=== PATIENT | male | born 1970 | race Caucasian/White ===

== ENCOUNTER 2017-09-14 13:07 | Emergency (ER) | payer MEDICAID, OTHER ==
[2017-09-14 13:16] VITALS: TEMP 98.3; O2SAT 98
--- NOTE | 2017-09-14 14:56 | ED PDOC ---
HPI: Chest Pain Chief Complaint (Provider): Palpitations Additional History Per: Patient <Theodore Montanez - Last Filed: 09/14/17 16:53> <Bernarda Cagle - Last Filed: 09/16/17 13:04> Time Seen by Provider: 09/14/17 13:41 Chief Complaint (Nursing): Chest Pain Additional Complaint(s): This is 47 y/o male with PMH of Hypothyroidism comes to the clinic for evaluation and c/o palpitations since last 3 months. Patient denies any acute event, but states this palpitations are getting worse and he doesn't have any place to go after he lost his insurance. Patient admits loss of appetite, body aches, low energy and emotional mood. Patient denies any suicidal and homicidal ideation but admits loss of interest. Patient denies any diarrhea/constipation, hot/cold intolerance, abdominal pain, dizziness, blurred vision, acute chest pain, acute SOB or any urinary symptoms. - Patient would like to get synthroid medication (Theodore Montanez) Supervising Attending Note - Supervising Attending Note The Documented history was done by the: Physician Interventional Radiologist, Attending Physician The documented physical exam was done by the: Physician Interventional Radiologist, Attending Physician The documented procedures were done by the: Physician Interventional Radiologist, Attending Physician - Attestation: I have personally seen and examined this patient.: Yes I have fully participated in the care of the patient.: Yes I have reviewed all pertinent clinical information: Yes <Bernarda Cagle - Last Filed: 09/16/17 13:04> Past Medical History - Medical History PMH: Hypothyroidism Denies: Atrial Fibrillation, CAD, Cardia Arrhythmia, COPD, CVA - Surgical History Surgical History: No Surg Hx - Family History Family History: States: No Known Family Hx - Living Arrangements Living Arrangements: With Family - Social History Current smoker - smoking cessation education provided: Yes Alcohol: None Drugs: Denies <Theodore Montanez - Last Filed: 09/14/17 16:53> <Bernarda Cagle - Last Filed: 09/16/17 13:04> Vital Signs: Last Vital Signs Temp 98.3 F 09/14/17 13:11 Pulse 68 09/14/17 17:25 Resp 14 09/14/17 17:25 BP 105/74 09/14/17 17:25 Pulse Ox 98 09/14/17 17:25 - Home Medications Home Medications: Ambulatory Orders Medication Instructions Recorded Levothyroxine Sodium [Synthroid] 175 mcg PO DAILY #30 tablet 09/14/17 - Allergies Allergies/Adverse Reactions: Allergies Allergy/AdvReac Type Severity Reaction Status Date / Time No Known Allergies Allergy Verified 09/14/17 13:11 TOMASZ Risk Score for UA/NSTEMI - TOMASZ Risk Score Age > 64: NO 3 or more CAD Risk Factors: NO Known CAD (Stenosis greater than 50%): NO Aspirin use in past 7 days: NO Severe Angina: NO EKG ST changes greater than 0.5mm: NO Positive Cardiac Marker: NO TOMASZ Score: 0 Risk %: 5% <Theodore Montanez - Last Filed: 09/14/17 16:53> Curb-65 Severity Score - CURB-65 Severity Score Confusion: No Bun >19mg/dl (>7mmol/L): No Respiratory Rate greater than/equal to 30: No Systolic BP <90 or Diastolic BP less than/equal 60mmHg: No Age >64: No Curb-65 Score: 0 Percentage 30-day mortality: 0.6% <Theodore Montanez - Last Filed: 09/14/17 16:53> Wells Criteria for PE - Wells Criteria for Pulmonary Embolism Clinical Signs and Symptoms of DVT: No P.E is #1 Diagnosis, or Equally Likely: No Heart Rate >100: No Immobilization at least 3 days;Surgery previous 4 weeks: No Previous, objectively diagnosed PE or DVT: Yes Hemoptysis: No Malignancy w/treatment within 6 months, or palliative: No Total Score: 1.5 <Theodore Montanez - Last Filed: 09/14/17 16:53> Review of Systems Constitutional: Negative for: Fever, Chills Eyes: Negative for: Pain, Vision Change ENT: Negative for: Ear Pain, Nose Pain Cardiovascular: Positive for: Palpitations. Negative for: Chest Pain, Orthopnea , Paroxysmal Noc. Dyspnea Respiratory: Negative for: Cough, Shortness of Breath, Hemoptysis Gastrointestinal: Negative for: Nausea, Abdominal Pain Genitourinary Male: Negative for: Dysuria Musculoskeletal: Negative for: Neck Pain Skin: Negative for: Rash Neurological: Negative for: Weakness, Numbness Psych: Positive for: Depression <Theodore Montanez - Last Filed: 09/14/17 16:53> ROS Statement: Except As Marked, All Systems Reviewed And Found Negative <Bernarda Cagle - Last Filed: 09/16/17 13:04> Physical Exam - Reviewed Nursing Documentation Reviewed: Yes Vital Signs Reviewed: Yes - Physical Exam Appears: Positive for: No Acute Distress Head Exam: Positive for: ATRAUMATIC, NORMAL INSPECTION, NORMOCEPHALIC Skin: Positive for: Normal Color Eye Exam: Positive for: Normal appearance ENT: Positive for: Normal ENT Inspection Neck: Positive for: Normal, Painless ROM, Supple, Trachea Midline Cardiovascular/Chest: Positive for: Regular Rate, Rhythm, Chest Non Tender. Negative for: Edema, JVD Respiratory: Positive for: Normal Breath Sounds. Negative for: Accessory Muscle Use Gastrointestinal/Abdominal: Positive for: Normal Exam, Bowel Sounds, Soft. Negative for: Tenderness Back: Positive for: Normal Inspection Extremity: Positive for: Normal ROM. Negative for: Pedal Edema, Calf Tenderness Neurologic/Psych: Positive for: Alert, issuer II-XII, Oriented <Theodore Montanez - Last Filed: 09/14/17 16:53> - Laboratory Results Result Diagrams: 09/14/17 15:05 09/14/17 15:05 - ECG O2 Sat by Pulse Oximetry: 98 <Theodore Montanez - Last Filed: 09/14/17 16:53> - Laboratory Results Result Diagrams: 09/14/17 15:05 09/14/17 15:05 <Bernarda Cagle - Last Filed: 09/16/17 13:04> - ECG Interpretation Of ECG: Normal EKG Sinus rhythm No ST or AL changes (Theodore Montanez) - Progress ED Course And Treament: 47 y/o male with PMH of hypothyroidism comes to ED for evaluation of palpitations - EKG - BMP, Troponin - CXR - 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 Cagle EKG reviewed: Sinus Rhythm , Normal EKG, No ST elevations, normal AL CBC and CMP reviewed and unremarkable D-dim normal Troponin unremarkable Patient was examined and reevaluated , patient denies any palpitations at this time and requesting to go home with Synthroid medication. (Theodore Montanez) Medical Decision Making <Theodore Montanez - Last Filed: 09/14/17 16:53> <Bernarda Cagle - Last Filed: 09/16/17 13:04> Medical Decision Making: Palpitations, Symptoms of Hypothyroidism (Theodore Montanez) Disposition - Disposition Disposition: Routine/Home Disposition Time: 16:51 <Theodore Montanez - Last Filed: 09/14/17 16:53> - Patient ED Disposition Is Patient to be Admitted: No Doctor Will See Patient In The: Office Counseled Patient/Family Regarding: Studies Performed, Diagnosis, Need For Followup <Bernarda Cagle - Last Filed: 09/16/17 13:04> - Clinical Impression Clinical Impression: Palpitation, Hypothyroidism - Disposition Referrals: [facility] [Outside] Condition: GOOD Additional Instructions: Take your medications as instructed. Follow up with your PCP in 3 days. Prescriptions: Levothyroxine Sodium [Synthroid] 175 mcg PO DAILY #30 tablet Instructions: Palpitations (ED), Hypothyroidism (ED)
[2017-09-14 15:15] LABS: BASO # 0.1 K/uL (0.0-0.2); BASO % 1.2 % (0.0-2.0); EOS # 0.2 K/uL (0.0-0.7); EOS % 2.2 % (0.0-4.0); HEMOGLOBIN 12.9 g/dL (12.0-18.0); LYMPH # 1.7 K/uL (1.0-4.3); LYMPH % 22.4 % (20.0-40.0); MEAN CELL VOLUME 92.3 fl (80.0-94.0); MEAN CORPUSCULAR HEMOGLOBIN 30.1 pg (27.0-31.0); MEAN CORPUSCULAR HGB CONC 32.6 g/dL (33.0-37.0); MEAN PLATELET VOLUME 7.7 fl (7.2-11.7); MONO # 0.5 K/uL (0.0-0.8); NEUT # 5.2 K/uL (1.8-7.0); NEUT % 67.2 % (50.0-75.0); NRBC % 0.1 % (0.0-0.0); RBC 4.31 Mil/uL (4.40-5.90); RED CELL DISTRIBUTION WIDTH 14.5 % (11.5-14.5); WHITE BLOOD COUNT 7.8 K/uL (4.8-10.8)
--- NOTE | 2017-09-14 15:32 | RAD ---
PROCEDURE: CHEST RADIOGRAPH, 1 VIEW HISTORY: dyspnea COMPARISON: None available. FINDINGS: LUNGS: Clear. PLEURA: No pneumothorax or pleural fluid seen. CARDIOVASCULAR: No radiographic findings to suggest acute or significant cardiovascular disease. OSSEOUS STRUCTURES: No significant abnormalities. VISUALIZED UPPER ABDOMEN: Normal. OTHER FINDINGS: None. IMPRESSION: No active disease.
[2017-09-14 15:48] LABS: CALCIUM 9.7 mg/dL (8.4-10.2); GFR AFRICAN-AMERICAN > 60; GFR NON-AFRICAN AMERICAN 54
[2017-09-14 16:04] LABS: BLOOD UREA NITROGEN 16 mg/dl (9-20)
[2017-09-14 17:26] VITALS: BP 105/74; PULSE 68; RESP 14
--- NOTE | 2017-09-15 13:09 | CARD ---
APPROVED REPORT EKG Measurement Heart [id number] <Conclusion> Normal sinus rhythm Normal ECG
== END 2017-09-14 17:25 | disposition home or self-care (01) ==
LOC: H.ER 13:07
DX: R00.2 Palpitations (principal); E03.9 Hypothyroidism, unspecified

== ENCOUNTER 2017-10-04 11:20 | Emergency (ER) | payer MEDICAID ==
[2017-10-04] MEDS ORDERED: Naloxone 0.4 mg/ml Inj (Adult) ONE (11:36)
[2017-10-04] MEDS ORDERED: Naloxone 0.4 mg/ml Inj (Adult) IVP ONE (11:43)
[2017-10-04] MEDS ORDERED: Sodium Chloride 0.9% 1,000 ML IV ONE (11:45)
--- NOTE | 2017-10-04 11:46 | ED PDOC ---
HPI: Psych/Substance Abuse Time Seen by Provider: 10/04/17 11:34 Chief Complaint (Nursing): Substance Abuse Chief Complaint (Provider): Substance abuse History Per: Patient, EMS History/Exam Limitations: no limitations Onset/Duration Of Symptoms: Hrs (today) Suicide/Self Injury Attempted (Context): None Associated Symptoms: denies: Suicidal Thoughts, Suicidal Plan Involuntary Hold By: None Additional Complaint(s): Ron Diaz is a 47 year old male, with a past medical history of thyroid disease and substance abuse, who was brought to the emergency department after he was found walking on the street by EMS and PD. Per EMS, on route to hospital patient was very drowsy but woke up, no narcan was given. On arrival, patient was drowsy, heart rate was in the 140s, and O2sat dropped to 88%. Initial history limited due to patient's clinical condition. PMD: None provided. Past Medical History Reviewed: Historical Data, Nursing Documentation, Vital Signs Vital Signs: Last Vital Signs Temp Pulse 145 H 10/04/17 11:24 Resp 20 10/04/17 11:24 BP 152/108 H 10/04/17 11:24 Pulse Ox - Medical History PMH: Hypothyroidism Denies: Atrial Fibrillation, CAD, Cardia Arrhythmia, COPD, CVA - Surgical History Surgical History: No Surg Hx - Family History Family History: States: Unknown Family Hx - Home Medications Home Medications: Ambulatory Orders Medication Instructions Recorded Levothyroxine Sodium [Synthroid] 175 mcg PO DAILY #30 tablet 09/14/17 - Allergies Allergies/Adverse Reactions: Allergies Allergy/AdvReac Type Severity Reaction Status Date / Time No Known Allergies Allergy Verified 09/14/17 13:11 Review of Systems ROS Statement: Except As Marked, All Systems Reviewed And Found Negative Constitutional: Positive for: Other (substance abuse) Physical Exam - Reviewed Nursing Documentation Reviewed: Yes Vital Signs Reviewed: Yes - Physical Exam Appears: Positive for: In Acute Distress (moans w/ arousal of painful stimuli) Head Exam: Positive for: ATRAUMATIC, NORMAL INSPECTION, NORMOCEPHALIC Skin: Positive for: Diaphoresis Eye Exam: Positive for: Other (pupils pinpoint. ) Neck: Positive for: Painless ROM, Supple Respiratory: Positive for: Normal Breath Sounds (clear b/l). Negative for: Respiratory Distress Gastrointestinal/Abdominal: Positive for: Normal Exam, Soft. Negative for: Tenderness, Guarding, Rebound Extremity: Positive for: Normal ROM. Negative for: Deformity, Swelling - Laboratory Results Result Diagrams: 10/04/17 11:48 10/04/17 11:48 - ECG ECG Rhythm: Positive for: Sinus Tachycardia Interpretation Of ECG: T-wave inversion in aVL Rate: 131 - Critical Care Total Time (In Min): 30 Medical Decision Making Medical Decision Making: Initial Impression: Opiate overdose Initial Plan: --Basic Metabolic Panel --Magnesium --CBC --Narcan 0.4 mg IVP --Sodium Chloride 1,000 ml IV 999 mls/hr --O2 via Nasal cannula --reevaluation --Patient was given 0.4mg Narcan, woke up right away and converses clearly. Pt reports he used a bag heroin today, snorted. Denies other drug use. Patient was not aware of lacing of heroin. He denies any suicidal or homicidal ideations, no other medical complaints. No previous symptoms of fever or cough. He didn't eat breakfast this morning. 12:37 --Vital signs significantly improved. Afebrile 98F. Pt completely asymptomatic, Alert and orientedx3, steady gait, denies any SI or HI. 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 Advised pt to remain in ER for a couple of hours for further observation but doesn't want to stay in hospital. Scribe Attestation: Documented by Jack Hassan, acting as a scribe for Tee Hunter MD Provider Scribe Attestation: All medical record entries made by the Scribe were at my direction and personally dictated by me. I have reviewed the chart and agree that the record accurately reflects my personal performance of the history, physical exam, medical decision making, and the department course for this patient. I have also personally directed, reviewed, and agree with the discharge instructions and disposition. Disposition - Clinical Impression Clinical Impression: Opiate overdose - Disposition Disposition: Routine/Home Disposition Time: 12:40 Condition: IMPROVED Additional Instructions: Mr Diaz, thank you for letting us take care of you today. Your provider was Dr. Hunter. You were treated for Opiate Overdose. The emergency medical care you received today was directed at your acute symptoms. If you were prescribed any medication, please fill it and take as directed. It may take several days for your symptoms to resolve. Return to the Emergency Department if your symptoms worsen, do not improve, or if you have any other problems. Please contact your doctor or call one of the physicians/clinics you have been referred to that are listed on the Patient Visit Information form that is included in your discharge packet. Bring any paperwork you were given at discharge with you along with any medications you are taking to your follow up visit. Our treatment cannot replace ongoing medical care by a primary care provider (PCP) outside of the emergency department. Thank you for allowing the [facility] team to be part of your care today. If you had an X-Ray or CT scan: A Radiologist will review the ED reading if any change in treatment is needed we will contact you. If you had a blood, urine, or wound culture: It will take several days for the results, if any change in treatment is needed we will contact you. If you had an STI test: It will take 48 hours for the results. Please call after 1 week if you have not heard back. Instructions: Narcotic Abuse (ED) Forms: [employer] (Tajik)
[2017-10-04 12:07] LABS: HEMOGLOBIN 12.2 g/dL (12.0-18.0); MEAN CORPUSCULAR HEMOGLOBIN 30.7 pg (27.0-31.0); MEAN CORPUSCULAR HGB CONC 33.3 g/dL (33.0-37.0); RBC 3.97 Mil/uL (4.40-5.90); RED CELL DISTRIBUTION WIDTH 14.4 % (11.5-14.5); WHITE BLOOD COUNT 9.6 K/uL (4.8-10.8)
[2017-10-04 12:26] LABS: BLOOD UREA NITROGEN 20 mg/dl (9-20); CALCIUM 9.4 mg/dL (8.4-10.2); GFR AFRICAN-AMERICAN > 60; GFR NON-AFRICAN AMERICAN 54; MAGNESIUM 2.1 MG/DL (1.6-2.3)
[2017-10-04 12:56] VITALS: BP 120/72; RESP 18; TEMP 98.1; O2SAT 100
[2017-10-07 18:50] VITALS: PULSE 131
== END 2017-10-04 14:29 | disposition home or self-care (01) ==
LOC: H.ER 11:20
DX: T40.601A Poisoning by unspecified narcotics, accidental (unintentional), initial encounter (principal); E03.9 Hypothyroidism, unspecified
CPT/HCPCS: 80048; 82948; 83735; 85027; 96374; 99283; J2310; J7040

== ENCOUNTER 2017-10-16 14:45 | Emergency (ER) | payer MEDICAID ==
[2017-10-16 14:50] VITALS: BP 128/75; PULSE 130; RESP 18; TEMP 98.8; O2SAT 98
== END 2017-10-16 15:30 | disposition left against medical advice (07) ==
LOC: H.ER 14:45
DX: Z02.89 Encounter for other administrative examinations (principal)

== ENCOUNTER 2017-11-09 14:20 | Emergency (ER) | payer MEDICAID ==
--- NOTE | 2017-11-09 14:51 | ED PDOC ---
HPI: Psych/Substance Abuse Time Seen by Provider: 11/09/17 14:32 Chief Complaint (Nursing): Substance Abuse Chief Complaint (Provider): substance abuse History Per: Patient, EMS Additional Complaint(s): 47-year-old male presents to emergency department for evaluation of substance abuse. Patient was found sleeping in the street. He arrives via ambulance. The patient admits to snorting heroin today. He has history of opiate abuse. Patient offers no acute medical complaints. PMD: none Past Medical History Reviewed: Historical Data, Nursing Documentation, Vital Signs - Medical History PMH: Hypothyroidism - Family History Family History: States: Unknown Family Hx - Social History Current smoker - smoking cessation education provided: No Alcohol: None Drugs: Opiates (snorts heroin) - Home Medications Home Medications: Ambulatory Orders Medication Instructions Recorded Levothyroxine Sodium [Synthroid] 175 mcg PO DAILY #30 tablet 09/14/17 - Allergies Allergies/Adverse Reactions: Allergies Allergy/AdvReac Type Severity Reaction Status Date / Time No Known Allergies Allergy Verified 09/14/17 13:11 Review of Systems ROS Statement: Except As Marked, All Systems Reviewed And Found Negative Psych: Positive for: Other (heroin abuse) Physical Exam - Reviewed Nursing Documentation Reviewed: Yes Vital Signs Reviewed: Yes - Physical Exam Appears: Positive for: Well, Non-toxic, No Acute Distress Skin: Negative for: Rash Eye Exam: Positive for: Normal appearance Cardiovascular/Chest: Positive for: Regular Rate, Rhythm Respiratory: Positive for: Normal Breath Sounds Gastrointestinal/Abdominal: Positive for: Soft. Negative for: Tenderness Extremity: Positive for: Normal ROM Neurologic/Psych: Positive for: Other (falling asleep as he is speaking) - Laboratory Results Result Diagrams: 11/09/17 15:12 11/09/17 15:12 - ECG Interpretation Of ECG: Sinus tach 125 bpm, no acute finding, reviewed by PA and ED attending. Medical Decision Making Medical Decision Makin:50 47 year old male with heroin abuse. Patient is uncooperative upon arrival, has a very unsteady gait and is refusing to sit on stretcher. Security was called to bedside. Police also came to bedside as they were in the emergency department. Patient was assisted into gowns. He was placed in 4 point restraints for his safety and safety of ED staff , labs obtained. Plan: CBC CMP UDS BAL UA CXR EKG Fluid bolus 1:1 bedside observation with 4 point restraints 16:45: restraints and 1:1 discontinued. Patient given second bolus of fluids. He offers no complaints, he is asking if he can eat something. 18:30 - vital signs are markedly improved, patient is ambulatory with steady gait, he is stable for discharge. Disposition - Clinical Impression Clinical Impression: Substance abuse - Patient ED Disposition Is Patient to be Admitted: No Counseled Patient/Family Regarding: Diagnosis, Need For Followup - Disposition Referrals: Leon Reese MD [Staff Provider] - Disposition: Routine/Home Disposition Time: 18:30 Condition: STABLE Additional Instructions: Follow up with primary care doctor or pain management. Instructions: Drug Abuse Treatment, Drug Abuse and Drug Addiction (DC) Forms: [employer] (Greek) Results - Lab Results Lab Results: 11/09/17 11/09/17 11/09/17 16:39 15:12 15:12 WBC 11.2 H RBC 4.59 Hgb 13.7 Hct 41.5 MCV 90.6 MCH 29.8 MCHC 32.9 L RDW 13.0 Plt Count 333 MPV 7.6 Neut % (Auto) 65.5 Lymph % (Auto) 25.3 Dukes % (Auto) 7.4 Eos % (Auto) 1.2 Baso % (Auto) 0.6 Neut # (Auto) 7.4 H Lymph # (Auto) 2.8 Dukes # (Auto) 0.8 Eos # (Auto) 0.1 Baso # (Auto) 0.1 Sodium 146 Potassium 3.6 Chloride 103 Carbon Dioxide 27 Anion Gap 20 BUN 22 H Creatinine 1.6 H Est GFR ( Amer) 56 Est GFR (Non-Af Amer) 47 POC Glucose (mg/dL) Random Glucose 210 H Calcium 9.9 Total Bilirubin 0.5 AST 49 ALT 71 Alkaline Phosphatase 60 Total Protein 8.6 H Albumin 4.7 Globulin 3.9 Albumin/Globulin Ratio 1.2 Urine Opiates Screen Positive H Urine Methadone Screen Negative Ur Barbiturates Screen Negative Ur Phencyclidine Scrn Negative Ur Amphetamines Screen Negative U Benzodiazepines Scrn Negative U Oth Cocaine Metabols Negative U Cannabinoids Screen Negative Alcohol, Quantitative < 10 11/09/17 14:58 WBC RBC Hgb Hct MCV MCH MCHC RDW Plt Count MPV Neut % (Auto) Lymph % (Auto) Dukes % (Auto) Eos % (Auto) Baso % (Auto) Neut # (Auto) Lymph # (Auto) Dukes # (Auto) Eos # (Auto) Baso # (Auto) Sodium Potassium Chloride Carbon Dioxide Anion Gap BUN Creatinine Est GFR ( Amer) Est GFR (Non-Af Amer) POC Glucose (mg/dL) 194 H Random Glucose Calcium Total Bilirubin AST ALT Alkaline Phosphatase Total Protein Albumin Globulin Albumin/Globulin Ratio Urine Opiates Screen Urine Methadone Screen Ur Barbiturates Screen Ur Phencyclidine Scrn Ur Amphetamines Screen U Benzodiazepines Scrn U Oth Cocaine Metabols U Cannabinoids Screen Alcohol, Quantitative
[2017-11-09] MEDS ORDERED: Sodium Chloride 0.9% 1,000 ML IV STA ×2 (15:13→16:50)
[2017-11-09 15:15] LABS: BASO % 0.6 % (0.0-2.0); EOS # 0.1 K/uL (0.0-0.7); EOS % 1.2 % (0.0-4.0); HEMOGLOBIN 13.7 g/dL (12.0-18.0); LYMPH # 2.8 K/uL (1.0-4.3); LYMPH % 25.3 % (20.0-40.0); MEAN CELL VOLUME 90.6 fl (80.0-94.0); MEAN CORPUSCULAR HEMOGLOBIN 29.8 pg (27.0-31.0); MEAN CORPUSCULAR HGB CONC 32.9 g/dL (33.0-37.0); MEAN PLATELET VOLUME 7.6 fl (7.2-11.7); MONO # 0.8 K/uL (0.0-0.8); MONO % 7.4 % (0.0-10.0); NEUT # 7.4 K/uL (1.8-7.0); NEUT % 65.5 % (50.0-75.0); NRBC % 0.1 % (0.0-0.0); RBC 4.59 Mil/uL (4.40-5.90); WHITE BLOOD COUNT 11.2 K/uL (4.8-10.8)
[2017-11-09 15:16] LABS: BASO # 0.1 K/uL (0.0-0.2)
[2017-11-09 15:34] LABS: ALB/GLOB RATIO 1.2 (1.0-2.1); ALBUMIN 4.7 g/dL (3.5-5.0); ALT/SGPT 71 U/L (21-72); AST/SGOT 49 U/L (17-59); BLOOD UREA NITROGEN 22 mg/dl (9-20); CALCIUM 9.9 mg/dL (8.4-10.2); GFR AFRICAN-AMERICAN 56; GFR NON-AFRICAN AMERICAN 47
--- NOTE | 2017-11-09 16:45 | RAD ---
HISTORY: clearance COMPARISON: Comparison chest dated 09/14/2017. FINDINGS: LUNGS: Suspect minor bibasilar atelectasis right greater than left PLEURA: No significant pleural effusion identified, no pneumothorax apparent. CARDIOVASCULAR: Normal. OSSEOUS STRUCTURES: No significant abnormalities. VISUALIZED UPPER ABDOMEN: Normal. OTHER FINDINGS: None. IMPRESSION: Suspect minor bibasilar atelectasis right greater than left
[2017-11-09 16:47] VITALS: RESP 16
[2017-11-09 17:12] LABS: BARBITURATES, UR NEGATIVE (NEGATIVE); BENZODIAZEPINES, UR NEGATIVE (NEGATIVE); OPIATES, UR POSITIVE (NEGATIVE); PHENCYCLIDINE, UR NEGATIVE (NEGATIVE)
[2017-11-09 17:21] LABS: SQUAMOUS EPITHIAL < 1 /hpf (0-5); URINE BACTERIA RARE (<OCC); URINE BILIRUBIN NEGATIVE (NEGATIVE); URINE BLOOD NEGATIVE (NEGATIVE); URINE CLARITY CLOUDY (Clear); URINE COLOR AMBER (YELLOW); URINE GLUCOSE (UA) NEG (Normal); URINE LEUKOCYTE ESTERASE NEG Leu/uL (Negative); URINE PROTEIN 100 mg/dL (NEGATIVE)
[2017-11-09 18:01] VITALS: BP 126/86; PULSE 84; TEMP 98.1; O2SAT 97
--- NOTE | 2017-11-10 12:20 | CARD ---
APPROVED REPORT EKG Measurement Heart [id number] <Conclusion> Sinus tachycardia Possible Left atrial enlargement Possible Inferior infarct, age undetermined Abnormal ECG
== END 2017-11-09 18:35 | disposition home or self-care (01) ==
LOC: H.ER 14:20
DX: F11.10 Opioid abuse, uncomplicated (principal); E03.9 Hypothyroidism, unspecified
CPT/HCPCS: 71045; 80053; 80320; 80324; 80345; 80346; 80349; 80353; 80358; 80361; 81003; 82948; 83992; 85025; 93005; 96360; 96361; 99284; J7040